=== PATIENT | female | born 1955 | race Caucasian/White ===

== ENCOUNTER 2022-11-23 06:56 | Observation (INO) ==
--- NOTE | 2022-10-22 11:17 | PAT Medication Instructions ---
Medication Instructions Date of Service October 22, 2022 Home Medications albuterol sulfate 2.5 mg/3 mL (0.083 %) solution for nebulization 2.5 mg inhalation QID PRN Shortness Of Breath albuterol sulfate 90 mcg/actuation aerosol inhaler (Proventil HFA) 2 puff inha lation QID PRN Shortness Of Breath amlodipine 10 mg tablet 10 mg PO HS aripiprazole 10 mg tablet 10 mg PO HS buspirone 15 mg tablet 15 mg PO TID dapagliflozin 5 mg tablet (Farxiga) 5 mg PO QAM duloxetine 60 mg capsule,delayed release 60 mg PO QAM fluticasone 500 mcg-salmeterol 50 mcg/dose blistr powdr for inhalation (Advair Diskus) 1 inh inhalation BID gabapentin 400 mg capsule 400 mg PO TID levothyroxine 112 mcg tablet 112 mcg PO UD levothyroxine 125 mcg tablet 125 mcg PO UD losartan 50 mg tablet 50 mg PO BID metformin 1,000 mg tablet 1,000 mg PO BID metoprolol succinate 50 mg tablet,extended release 24 hr 50 mg PO BID pantoprazole 40 mg tablet,delayed release 40 mg PO BID semaglutide 1 mg/dose (4 mg/3 mL) subcutaneous pen injector (Ozempic) 1 mg subcut Q7D tiotropium bromide 18 mcg capsule with inhalation device (Spiriva with HandiHaler) 1 cap inhalation HS Continue as directed levothyroxine 112 mcg tablet 112 mcg PO UD levothyroxine 125 mcg tablet 125 mcg PO UD semaglutide 1 mg/dose (4 mg/3 mL) subcutaneous pen injector (Ozempic) 1 mg subcut Q7D ASK your prescriber and surgeon aripiprazole 10 mg tablet 10 mg PO HS STOP taking 3 days before surgery dapagliflozin 5 mg tablet (Farxiga) 5 mg PO QAM DO NOT take the morning of surgery losartan 50 mg tablet 50 mg PO BID metformin 1,000 mg tablet 1,000 mg PO BID Take morning of surgery With a small sip of water, OTHERWISE NOTHING TO EAT OR DRINK AFTER MIDNIGHT: albuterol sulfate 2.5 mg/3 mL (0.083 %) solution for nebulization 2.5 mg inhalation QID PRN Shortness Of Breath (if needed) albuterol sulfate 90 mcg/actuation aerosol inhaler (Proventil HFA) 2 puff inhalation QID PRN Shortness Of Breath (use if needed; please bring with you to hospital day of surgery if possible) buspirone 15 mg tablet 15 mg PO TID duloxetine 60 mg capsule,delayed release 60 mg PO QAM fluticasone 500 mcg-salmeterol 50 mcg/dose blistr powdr for inhalation (Advair Diskus) 1 inh inhalation BID gabapentin 400 mg capsule 400 mg PO TID metoprolol succinate 50 mg tablet,extended release 24 hr 50 mg PO BID pantoprazole 40 mg tablet,delayed release 40 mg PO BID Take evening before surgery albuterol sulfate 2.5 mg/3 mL (0.083 %) solution for nebulization 2.5 mg inhalation QID PRN Shortness Of Breath (if needed) albuterol sulfate 90 mcg/actuation aerosol inhaler (Proventil HFA) 2 puff inhalation QID PRN Shortness Of Breath (if needed) amlodipine 10 mg tablet 10 mg PO HS buspirone 15 mg tablet 15 mg PO TID fluticasone 500 mcg-salmeterol 50 mcg/dose blistr powdr for inhalation (Advair Diskus) 1 inh inhalation BID gabapentin 400 mg capsule 400 mg PO TID losartan 50 mg tablet 50 mg PO BID metformin 1,000 mg tablet 1,000 mg PO BID metoprolol succinate 50 mg tablet,extended release 24 hr 50 mg PO BID pantoprazole 40 mg tablet,delayed release 40 mg PO BID tiotropium bromide 18 mcg capsule with inhalation device (Spiriva with HandiHaler) 1 cap inhalation HS Other Notes If you have any questions please call us at [phone] or [phone] or [phone] or [phone]
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
[~2022-11-23 06:56] MED LIST: ACETAMINOPHEN 500 MG TAB PO SCH; BUPIVACAINE 0.5 % 5 MG/1 ML PF 10ML VIAL ONE; FAMOTIDINE 20 MG TAB PO SCH; GABAPENTIN 300 MG CAP PO SCH; LR 15ML/HR IV SCH; LR 60ML/HR IV SCH; ORTHO JOINT MIX INFIL SCH; TRANEXAMIC ACID 1,000 MG **IV Intra-op IV SCH; TRANEXAMIC ACID 1,000 MG **IV Pre-op IV SCH; VANCOMYCIN HCL 500 MG in NSS 100mL IV SCH; dexAMETHasone 4 MG TAB PO SCH
--- NOTE | 2022-11-23 08:01 | History & Physical Bridge Note ---
Date of Service November 23, 2022 History & Physical Bridge Note I have examined the patient, reviewed the History & Physical and in the interval since the performance of the History & Physical I have noted the following changes of clinical significance: no changes noted
[2022-11-23] MEDS ORDERED: fentaNYL citrate PF 100 MCG/2 ML VIAL IV PRN (08:22)
[2022-11-23] MEDS ORDERED: HYDROmorphone INJ 2 MG/ML SYR/VIAL IV PRN (08:22)
[2022-11-23] MEDS ORDERED: ePHEDrine sulfate 50 MG/ML AMP IV PRN (08:22)
[2022-11-23] MEDS ORDERED: ATROPINE SULFATE 0.1 MG/ML 10ML SYR IV PRN (08:22)
[2022-11-23] MEDS ORDERED: PROMETHAZINE HCL 6.25 MG in SODIUM CHLORIDE 0.9% 50 ML IV PRN (08:22)
[2022-11-23] MEDS ORDERED: ceFAZolin 2,000 MG/15 ML IV PUSH IV ONE (08:22)
[2022-11-23] MEDS ORDERED: fentaNYL citrate PF 100 MCG/2 ML VIAL ONE ×2 (08:31→10:00)
[2022-11-23] MEDS ORDERED: MIDAZOLAM HCL 1 MG/ML 2ML VIAL ONE (08:31)
[2022-11-23] MEDS ORDERED: ORTHO JOINT ANESTHETIC ONE (08:34)
[2022-11-23] MEDS ORDERED: VANCOMYCIN HCL 1 GM/270 ML BAG IV ONE (09:15)
[2022-11-23] MEDS ORDERED: VANCOMYCIN CONSULT ACTIVE PRN ×2 (09:16→13:02)
[2022-11-23] MEDS ORDERED: diphenhydrAMINE 50 MG/ML VIAL ONE ×2 (09:40→12:12)
[2022-11-23] MEDS ORDERED: DEXAMETHASONE SOD INJ 4 MG/ML VIAL ONE (09:40)
[2022-11-23] MEDS ORDERED: PROPOFOL IV EMULSION 10 MG/ML 20 ML VIAL IV ONE ×2 (09:40→10:02)
[2022-11-23] MEDS ORDERED: ONDANSETRON INJ 2 MG/ML 2 ML VIAL ONE (09:40)
[2022-11-23] MEDS ORDERED: GLYCOPYRROLATE 0.2 MG/ML VIAL ONE (10:13)
--- NOTE | 2022-11-23 10:45 | Operative Report ---
PG Post Operative Report Pre & Post Diagnosis Operation Date: 11/23/22 09:00 Pre-Op Diagnosis: Right shoulder cuff tear arthropathy with tendinopathy long head the biceps tendon Post-Op Diagnosis: Right shoulder cuff tear arthropathy with tendinopathy long head of the biceps tendon I identified the patient and participated in the time-out.: Yes Procedure Operation Date: 11/23/22 09:00 Actual Procedures p Right Total Shoulder Arthroplasty Reverse(Right) with open biceps tenodesis as a distinct and separate procedure (modifier 59)- Lukas Mathis DO Surgeon Lukas Mathis DO Side Seam Tender Lukas Ennis PA-C Estimated Blood Loss 150 Findings Consistent with Post-Op Diagnosis Specimens Right humeral head Description of Procedure A CPT code modifier 59: The long head of the biceps tendon was enlarged and inflamed consistent with tendinopathy. A tenodesis was opted. This was a separate and distinct portion of the procedure. For these reasons, a CPT code modifier 59 will be added to this case. Implants used: I used a [employer] Comprehensive reverse total shoulder arthroplasty system with a size 11 press fit micro humeral stem, a +6 offset humeral tray and a standard humeral bearing, a 25 mm small augment baseplate with a 6.5 mm central screw and superior and inferior locking screws, and a size 36 mm eccentric glenosphere. Judit arrived at [facility] for the above procedure. She was seen in the preoperative holding area and the operative extremity was identified and signed. She was given a preoperative antibiotic, TXA, and an interscalene nerve block. She was taken back to the operating room, laid on table in supine position, and put under general anesthesia. She was then put into the beachchair position. The shoulder was then prepped and draped in sterile fashion. A timeout was done and the patient and the operative extremity was properly identified. A deltopectoral approach was used. Dissection was taken down through the fascia and the deltoid was retracted laterally and the conjoined tendon was retracted medially. The anterior shoulder was exposed. The biceps groove was opened up and the biceps tendon was examined extensively. The biceps tendon demonstrated enlargement and inflammatory changes consistent with longstanding inflammation in the context of osteoarthritis and cuff arthropathy. The long head of the biceps tendon was then tenodesed to the upper border of the pectoralis major. This was a separate and distinct portion of the procedure. The subscapularis was then directly released off the lesser tuberosity with a peel technique. The inferior capsule was released and the humeral head was dislocated. A canal finding reamer was sent down the center of the humeral canal. Sequential reaming up to a size 11 reamer was done. Off that reamer, a proximal humeral resection guide was placed. The proximal humerus was resected at 135 of inclination and 25 of retroversion. Osteophytes were then removed and the glenoid was exposed. Time was spent doing a complete capsular and labral release. The glenoid guide was then placed in the inferior aspect of the glenoid. A 3.2 mm Steinmann pin was then placed into the glenoid vault at 10 of inclination. The glenoid baseplate was then reamed. The final size 25 mm small augment baseplate was then impacted in the place. A 6.5 mm central screw was then placed followed by superior and inferior locking screws. A 36 mm eccentric glenosphere was then impacted into place. Surrounding soft tissues were then injected with 100 cc an orthopedic pain control cocktail. The proximal humerus was then exposed. Sequential broaching of the humerus up to a size 11 broach was done. Off that broach a +6 offset humeral tray was trialed. The shoulder was then reduced, brought through a full range of motion, and felt to be stable. The shoulder was then dislocated and the broach was removed. The final size 11 micro press-fit humeral stem was then impacted into place. A standard humeral bearing was then snapped onto a +6 offset humeral tray. The humeral tray was then impacted onto the humeral stem. The shoulder was once again reduced, brought through a full range of motion, and felt to be stable. The subscapularis was then tenodesed back to the lesser tuberosity with transosseous FiberWire sutures and side to side sutures with the arm in 45 of external rotation. A dilute betadyne lavage was then done for 3 minutes. The joint was then irrigated with normal saline solution. Hemostasis was obtained. The interval was closed with 2-0 Vicryl suture. The skin was then closed with 2-0 Vicryl and agata. A Silverlon dressing was placed and the arm was rested in a regular arm sling. She was then extubated and transferred to a hospital bed. She taken to the postanesthesia care unit in stable condition. She tolerated the procedure well. Lukas Ennis PA-C, was present for the entire procedure. He was critical for patient positioning, prepping, draping, retraction exposure, wound closure and application of sterile dressing. I attest to the content of the Intraoperative Record and any orders documented therein. Any exceptions are noted below.
[2022-11-23] MEDS ORDERED: ALBUT/IPRATROP 3MG/0.5MG NEB 3 ML VIAL NEB STA ×2 (11:48→11:50)
[2022-11-23] MEDS ORDERED: diphenhydrAMINE 50 MG/ML VIAL IV STA (12:12)
--- NOTE | 2022-11-23 12:16 | Communication Note ---
Date of Service: November 23, 2022 pt c/o difficulty breathing post op. "my lower lung is tight". Pt has a functional interscalene block of her right arm. CTA b/l no w/r/r. upper airway has laminar flow. no sounds of obstruction. pt is tachypnic and on four liters of o2 NC. pt is worried that her covid is causing breathing problems. 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 will give benadryl because of her history of analyphylaxes. will check cxr
--- NOTE | 2022-11-23 12:25 | XRay Report ---
XR shoulder RT min 2V routine CLINICAL HISTORY: Post shoulder surgery COMPARISON STUDY: 04/12/2022. FINDINGS: Status post reverse right total shoulder arthroplasty. The hardware appears intact. No frac ture or dislocation within the right shoulder. Skin agata are in place. IMPRESSION: Status post reverse right total shoulder arthroplasty. No evidence for hardware complica tion. ACT 112: Negative or not required by law. Electronically signed by: Enrike Chiang M.D. 11/23/2022 12:23 PM
--- NOTE | 2022-11-23 12:37 | XRay Report ---
XR chest 1V portable CLINICAL HISTORY: difficulty breathing, post interscalene nerve block TECHNIQUE: Single frontal radiograph of the chest was obtained. Comparison: None available at the time of this dictation. FINDINGS: No lines and tubes are seen. The cardiomediastinal silhouette is normal. Elevation of the right hemid iaphragm is seen. No evidence of pleural effusion or pneumothorax. IMPRESSION: No acute chest disease. ACT 112: Negative or not required by law. Electronically signed by: Brian South M.D. 11/23/2022 12:36 PM
[2022-11-23] MEDS ORDERED: ALBUTEROL HFA 8 GM INHALER INH PRN (13:02)
[2022-11-23] MEDS ORDERED: bisacodyL 10 MG SUPP PR PRN (13:02)
[2022-11-23] MEDS ORDERED: ONDANSETRON INJ 2 MG/ML 2 ML VIAL IV PRN (13:02)
[2022-11-23] MEDS ORDERED: PHARMACY GLYCEMIC MGMT CONSULT PRN (13:02)
[2022-11-23] MEDS ORDERED: SODIUM CHLORIDE 0.9% 1000ML 1,000 ML IV SCH (13:02)
[2022-11-23] MEDS ORDERED: NON-FORMULARY MEDICATION (Semaglutide [Ozempic] 1 mg/dose (4 mg/3 mL) Pen Injector) SQ SCH (13:02)
[2022-11-23] MEDS ORDERED: MAGNESIUM HYDROXIDE SUSP 30 ML UDC PO PRN (13:02)
[2022-11-23] MEDS ORDERED: NALOXONE HCL 0.4 MG/1 ML VIAL/CARP IV PRN (13:02)
[2022-11-23] MEDS ORDERED: METOCLOPRAMIDE HCL INJ 5 MG/ML 2 ML VIAL IV PRN (13:02)
--- NOTE | 2022-11-23 13:21 | Anesthesiology Progress Note ---
Date of Service November 23, 2022 Anesthesia Post Procedure Vital Signs Vital Signs: Temp Pulse Pulse Resp BP Pulse Ox O2 Del Method 11/23/22 13:14 36.8 C 101 H 18 118/78 91 Nasal Cannula 11/23/22 12:44 36.6 C 100 H 18 100/65 90 Nasal Cannula 11/23/22 11:40 101 H 18 109/64 95 Oxymask 11/23/22 11:30 94 H 19 96/64 L 90 Oxymask 11/23/22 11:50 37.0 C 98 H 16 106/82 94 Oxymask 11/23/22 11:20 101 H 21 124/82 92 Oxymask 11/23/22 11:11 36.0 C L 97 H 20 82/57 L 92 Oxymask 11/23/22 07:42 Room Air 11/23/22 07:34 36.6 C 81 18 127/80 94 Room Air O2 Flow Rate 11/23/22 13:14 6 11/23/22 12:44 5 11/23/22 11:40 9 11/23/22 11:30 9 11/23/22 11:50 9 11/23/22 11:20 9 11/23/22 11:11 9 11/23/22 07:42 11/23/22 07:34 Pain Intensity Right Ankle: Pain Intensity: 5 Right Shoulder: Pain Intensity: 0 Transfer of Care Handoff Completed per policy Notes Mental Status: alert / awake / arousable and participated in evaluation Patient Amnestic to Procedure: Yes Nausea / Vomiting: adequately controlled Pain: adequately controlled Airway Patency, RR, SpO2: stable & adequate BP & HR: stable & adequate Hydration State: stable & adequate Anesthetic Complications: no major complications apparent and Pt Satisfied with anesthetic care
[2022-11-23] MEDS: [UNRECOGNIZED DRUG - REMARK] SCH ×3 (13:45→13:47)
[2022-11-23] MEDS: ALBUTEROL 0.083% NEBU SOLN 3 ML VIAL INH PRN ×2 (14:03→20:16)
[2022-11-23] MEDS: KETOROLAC TROMETHAMINE 15 MG/ML VIAL IV SCH ×2 (14:10→18:32)
[2022-11-23] MEDS: busPIRone 15 MG TAB PO SCH ×2 (14:10→20:44)
[2022-11-23] MEDS: ACETAMINOPHEN 500 MG TAB PO SCH ×2 (14:10→21:28)
[2022-11-23] MEDS: GABAPENTIN 400 MG CAP PO SCH ×2 (14:10→20:45)
[2022-11-23] MEDS ORDERED: NovoLIN-N (NPH) PER UNIT CHARGE SQ ONE (14:15)
[2022-11-23] MEDS ORDERED: CARBOHYDRATES FOR HYPOGLYCEMIA PO PRN (14:15)
[2022-11-23] MEDS ORDERED: GLUCOSE 10 TAB/TUBE PO PRN (14:15)
[2022-11-23] MEDS ORDERED: GLUCAGON FOR INJ 1 MG VIAL IM PRN (14:15)
[2022-11-23] MEDS ORDERED: DEXTROSE 50% 50 ML SYRINGE IV PRN (14:15)
[2022-11-23] MEDS ORDERED: GLUCOSE 40% GEL 15 GM TUBE PO PRN (14:15)
--- NOTE | 2022-11-23 14:20 | Pharmacy Report ---
Pharmacy Glycemic Short Note 2 - Date of Service November 23, 2022 - Glycemic Short BSG Results (Last 24 hours): 11/23/22 11/23/22 11/23/22 07:37 11:09 13:06 POC Glucose 139 H 153 H 212 H OUTPATIENT ANTIDIABETIC REGIMEN: * metformin 1 gm PO BID * Farxiga 5 mg PO daily * Ozempic 1 mg SQ weekly on Wednesdays * HbA1C = 7.2% (10/29/22) ASSESSMENT: * Ms Palma is a 67 y/o F with a PMH of T2DM who presents for R shoulder surgery. * Patient's fasting/preop BSG was 139 mg/dL. Postop BSG was 212 mg/dL. Confirmed with nursing that patient did NOT eat prior to this. * During surgery today, patient received dexamethasone 8 mg PO preop + dexamethasone 4 mg IV intraoperatively. * For steroids, will give NPH 40 units SQ x 1 (0.4 units/kg). Patient's fasting BSG was elevated at 139 mg/dL + patient is on three medications with an HbA1C of 7.2% so will give Lantus 20 units SQ x 1 (0.2 units/kg). * Novolog weight-based stress of 3 for now due to steroids. Overnight checks to ensure 24 hours coverage. PLAN FOR INPATIENT GLYCEMIC CONTROL: * Hold outpatient oral diabetes medications * Basal insulin * Lantus 20 units SQ x 1 re-evaluate tomorrow * NPH 40 units SQ x 1 * Bolus insulin * NovoLog per scale ACHS or Q6hrs while NPO * Goal Range: Low 110 mg/dL - High 140 mg/dL * Correction Factor: 15 mg/dL/unit * Nutritional / Prandial insulin per carb ratio of 1 unit per 5 grams CHO consumed
[2022-11-23] MEDS ORDERED: LANTUS PER UNIT CHARGE SC ONE (14:30)
[2022-11-23] MEDS: INSULIN ASPART PER UNIT CHARGE SC SCH ×3 (14:38→21:28)
[2022-11-23] MEDS: oxyCODONE HCL IR 5 MG TAB (IMMEDIATE RELEASE) PO PRN (19:54)
[2022-11-23] MEDS: METOPROLOL SUCC 50MG EXT REL TAB PO SCH (20:44)
[2022-11-23] MEDS: amLODIPine BESYLATE 5 MG TAB PO SCH (20:44)
[2022-11-23] MEDS: SENNA 8.6 MG TAB PO SCH (20:44)
[2022-11-23] MEDS: DOCUSATE SODIUM 100 MG CAP PO SCH (20:44)
[2022-11-23] MEDS: LOSARTAN POTASSIUM 50 MG TAB PO SCH (20:44)
[2022-11-23] MEDS: ARIPiprazole 10 MG TAB PO SCH (20:44)
[2022-11-23] MEDS: PANTOprazole 40 MG TAB PO SCH (20:44)
[2022-11-23] MEDS ORDERED: VANCOMYCIN HCL 1,500 MG in SODIUM CHLORIDE 0.9% 500 ML IV SCH (21:15)
[2022-11-24] MEDS: INSULIN ASPART PER UNIT CHARGE SC SCH ×6 (00:39→20:25)
[2022-11-24] MEDS: KETOROLAC TROMETHAMINE 15 MG/ML VIAL IV SCH ×4 (00:39→20:06)
[2022-11-24] MEDS: oxyCODONE HCL IR 5 MG TAB (IMMEDIATE RELEASE) PO PRN ×2 (04:29→10:47)
[2022-11-24] MEDS: ALBUTEROL 0.083% NEBU SOLN 3 ML VIAL INH PRN ×2 (04:39→11:56)
[2022-11-24] MEDS: ACETAMINOPHEN 500 MG TAB PO SCH ×3 (05:39→21:28)
[2022-11-24] MEDS ORDERED: VANCOMYCIN HCL 500 MG in SODIUM CHLORIDE 0.9% 250 ML IV SCH (06:00)
[2022-11-24] MEDS ORDERED: LEVOTHYROXINE SODIUM 112 MCG TABLET PO SCH (06:30)
--- NOTE | 2022-11-24 07:22 | Orthopedic Progress Note ---
Date of Service November 24, 2022 Assessment & Plan (1) Status post reverse total replacement of right shoulder: Overall her shoulder is doing fine but she is dealing with some postsurgical hypoxia. She does have a history of hypoxia in the recent past. She is able to take a deep breath so I do not feel that the phrenic nerve was affected with the nerve block. We will see how she does this morning with physical therapy. I did talk to the nurses. Hopefully we can wean her off the oxygen. If her oxygen saturations are 90% or greater then she can be discharged home today. If they are not the nursing staff will alert me and we may do a two-step to determine home oxygen and outpatient follow-up. Valarie Gill was seen and examined at bedside this morning. Overall she is doing okay. She is not having too much pain in the left shoulder. Her oxygen saturations have been low. She is on 7 L of oxygen. When they take her off she falls into the low 80s. She was recently on home oxygen for COVID and was just removed from that about 3 months ago. Her oxygen saturations are normally around 90%. She is able to take a deep breath.. Review of Systems All systems reviewed & are unremarkable except as noted in HPI & below. Physical Exam On physical examination of the left shoulder, the dressing is clean and dry. She has active motion of her hand and wrist.. Results & Data Results & Data Laboratory Results . Diagnostic Findings Postoperative x-rays of the left shoulder show the prosthesis to be in anatomic alignment without any evidence of fracture complication, or loosening.. PG Care Time/CCT Total # of Minutes Spent Total Time Spent with Patient: Total time spent is greater than 50% in coordination of care (as documented) at patient's floor/unit and/or counseling patient: Coding Level of Care Code 06946 Post Operative Follow-Up Diagnoses Status post reverse total replacement of right shoulder Z96.611
[2022-11-24] MEDS: GABAPENTIN 400 MG CAP PO SCH ×3 (07:25→20:17)
[2022-11-24] MEDS: PANTOprazole 40 MG TAB PO SCH ×2 (07:25→20:17)
[2022-11-24] MEDS: FLUTICASONE/VILANTEROL 200/25MCG 14 PUFFS/INHALER INH SCH (07:26)
[2022-11-24] MEDS: DOCUSATE SODIUM 100 MG CAP PO SCH ×2 (07:26→20:17)
[2022-11-24] MEDS: LOSARTAN POTASSIUM 50 MG TAB PO SCH ×2 (07:27→20:17)
[2022-11-24] MEDS: busPIRone 15 MG TAB PO SCH ×3 (07:27→20:17)
[2022-11-24] MEDS: DULoxetine HCL 60 MG CAP PO SCH (07:27)
[2022-11-24] MEDS: MULTIVITAMIN TAB PO SCH (07:27)
--- NOTE | 2022-11-24 08:56 | Pharmacy Report ---
Pharmacy Glycemic Short Note 2 - Date of Service November 24, 2022 - Glycemic Short BSG Results (Last 24 hours): 11/23/22 11/23/22 11/23/22 11:09 13:06 16:51 POC Glucose 153 H 212 H 249 H 11/23/22 11/24/22 11/24/22 20:41 00:12 04:13 POC Glucose 229 H 191 H 156 H 11/24/22 06:38 POC Glucose 183 H OUTPATIENT ANTIDIABETIC REGIMEN: * Metformin 1 gm PO BID * Farxiga 5 mg PO daily * Ozempic 1 mg SC weekly on Wednesdays * HbA1c: 7.2% (10/29/22) ASSESSMENT: 11/24: * Patient received 104 units of insulin yesterday, 60 units basal + 44 units bolus. BSGs were: [phone] mg/dL. * Fasting BSG this AM was 183 mg/dL, above goal. Will increase basal by ~20% today. * Still seeing some effects of steroid-induced hyperglycemia throughout the night. Likely will wear off in the next 24 hours but will tighten bolus parameters slightly to maintain a BSG < 180 mg/dL to help prevent postoperative infection. * Possible discharge today per ortho. 11/23: * Ms Palma is a 67 y/o F with a PMH of T2DM who presents for R shoulder surgery. * Patient's fasting/preop BSG was 139 mg/dL. Postop BSG was 212 mg/dL. Confirmed with nursing that patient did NOT eat prior to this. * During surgery today, patient received dexamethasone 8 mg PO preop + dexamethasone 4 mg IV intraoperatively. * For steroids, will give NPH 40 units SQ x 1 (0.4 units/kg). Patient's fasting BSG was elevated at 139 mg/dL + patient is on three medications with an HbA1C of 7.2% so will give Lantus 20 units SQ x 1 (0.2 units/kg). * Novolog weight-based stress of 3 for now due to steroids. Overnight checks to ensure 24 hours coverage. PLAN FOR INPATIENT GLYCEMIC CONTROL: * Hold outpatient oral diabetes medications * Basal insulin * Lantus 25 units SC x 1 this AM * Reassess basal in AM * Bolus insulin * NovoLog per scale ACHS or Q6hrs while NPO * Goal Range: Low 110 mg/dL - High 140 mg/dL * Correction Factor: 12 mg/dL/unit * Nutritional / Prandial insulin per carb ratio of 1 unit per 4 grams CHO consumed
[2022-11-24] MEDS ORDERED: LANTUS PER UNIT CHARGE SC ONE (09:00)
[2022-11-24] MEDS: METOPROLOL SUCC 50MG EXT REL TAB PO SCH ×2 (09:47→20:17)
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
[2022-11-24 14:56] LABS: Basophils # (auto) 0.02 K/uL (0-0.2); Basophils % (auto) 0.2 %; Eosinophils # (auto) 0.01 K/uL (0-0.50); Eosinophils % (auto) 0.1 %; Hematocrit (blood only) 34.3 % (37.0-47.0); Hemoglobin 10.9 g/dl (12.0-16.0); Immature Granulocytes # (auto) 0.07 K/uL (0.01-0.20); Immature Granulocytes % (auto) 0.6 %; Lymphocytes # (auto) 1.25 K/uL (1.2-3.4); Lymphocytes % (auto) 10.8 %; Mean Corpuscular Hemoglobin 25.7 pg (25.0-34.0); Mean Corpuscular Hgb Conc 31.8 g/dL (32.0-36.0); Mean Corpuscular Volume 80.9 fL (80.0-100.0); Mean Platelet Volume 9.9 fL (9.4-12.4); Monocytes # (auto) 0.82 K/uL (0.11-0.59); Monocytes % (auto) 7.1 %; Neutrophils # (auto) 9.43 K/uL (1.40-6.50); Neutrophils % (auto) 81.2 %; Platelet Count 330 K/uL (130-400); RDW Coefficient of Variation 16.2 % (11.5-14.5); RDW Standard Deviation 47.1 fL (36.4-46.3); Red Blood Count 4.24 M/uL (4.20-5.40)
--- NOTE | 2022-11-24 15:07 | XRay Report ---
XR chest 1V portable HISTORY: post-op hypoxia, ?R hemidiaphragm elevation COMPARISON: Chest 11/23/2022. FINDINGS: Status post recent right total shoulder arthroplasty. No pneumothorax. There are low lung v olumes. There is elevation the right hemidiaphragm with bibasilar linear densities. The heart is norm al in size. There is mild central pulmonary vascular congestion without overt edema. IMPRESSION: 1. Elevated right hemidiaphragm, unchanged. 2. Bibasilar linear densities are nonspecific but favor subsegmental atelectasis. A pneumonia could a lso have a similar appearance. 3. Mild central pulmonary vascular congestion without overt edema. ACT 112: Negative or not required by law. Electronically signed by: Enrike Chiang M.D. 11/24/2022 3:06 PM
[2022-11-24 15:13] LABS: BUN Creatinine Ratio 17.4 (10-20); Calcium 9.1 mg/dl (8.6-10.3); Creatinine Clr Calc Pharmacy 42.7 ml/min; Est GFR (African American) 42.3 ml/min; Est GFR (Non-African American) 36.5 ml/min; Magnesium 2.1 mg/dl (1.7-2.4); Potassium 4.5 mmol/L (3.5-5.1)
[2022-11-24] MEDS ORDERED: methylPREDNISolone 60 MG in SYRINGE 0 ML IV ONE (15:30)
[2022-11-24] MEDS: LEVALBUTEROL 1.25 MG/3 ML NEB NEB PRN ×2 (17:41→22:21)
--- NOTE | 2022-11-24 18:04 | Electrocardiogram Report ---
Test Reason : Blood Pressure : / mmHG Vent. Rate : 080 BPM Atrial Rate : 080 BPM P-R Int : 222 ms QRS Dur : 092 ms QT Int : 372 ms P-R-T Axes : 043 027 045 degrees QTc Int : 429 ms Sinus rhythm with 1st degree A-V block Otherwise normal ECG When compared with ECG of 29-OCT-2022 14:50, No significant change was found Confirmed by Morales Quick ([id number]) on 11/24/2022 6:03:52 PM Referred By: Lukas Mathis Confirmed By:Todd Quick
[2022-11-24] MEDS: SENNA 8.6 MG TAB PO SCH (20:16)
[2022-11-24] MEDS: amLODIPine BESYLATE 5 MG TAB PO SCH (20:17)
[2022-11-24] MEDS: ARIPiprazole 10 MG TAB PO SCH (20:17)
[2022-11-24] MEDS ORDERED: UMECLIDINIUM BROMIDE 62.5MCG/BLISTER 7 PUFFS/INHALER INH SCH (21:00)
[2022-11-25] MEDS: INSULIN ASPART PER UNIT CHARGE SC SCH ×4 (00:23→12:30)
[2022-11-25] MEDS: KETOROLAC TROMETHAMINE 15 MG/ML VIAL IV SCH ×2 (02:13→07:55)
[2022-11-25] MEDS: oxyCODONE HCL IR 5 MG TAB (IMMEDIATE RELEASE) PO PRN ×3 (05:57→15:52)
[2022-11-25] MEDS: ACETAMINOPHEN 500 MG TAB PO SCH ×2 (05:57→14:39)
--- NOTE | 2022-11-25 06:10 | Orthopedic Progress Note ---
Date of Service November 25, 2022 Assessment & Plan (1) Status post reverse total replacement of right shoulder: With regards to her shoulder she is doing fairly well. She is not having too much pain in her shoulder. She was seen yesterday by the hospitalist. She was diagnosed with possible asthma exasperation. She was given steroids. We will see how she does today. It seems that if she can maintain her oxygen saturations above 89% on less than 4 L of oxygen then she can return home on oxygen. However, if her saturations do not improve then we will likely order a CT scan of the chest. She is orthopedically stable for discharge today if okay with hospitalist. We will see how her lungs do. Valarie Spain was seen and examined at bedside this morning. She has CPAP on overnight. She is not having too much pain in the right shoulder. Her lungs seem to be improving some on the steroids. She has no new complaints.. Review of Systems All systems reviewed & are unremarkable except as noted in HPI & below. Physical Exam On physical examination of the right shoulder, the dressing is clean and dry. She has active motion of her hand and wrist.. Results & Data Results & Data Laboratory Results . Diagnostic Findings . PG Care Time/CCT Total # of Minutes Spent Total Time Spent with Patient: Total time spent is greater than 50% in coordination of care (as documented) at patient's floor/unit and/or counseling patient: Coding Level of Care Code 69768 Post Operative Follow-Up Diagnoses Status post reverse total replacement of right shoulder Z96.611
[2022-11-25] MEDS ORDERED: LEVOTHYROXINE SODIUM 125 MCG TABLET PO SCH (06:30)
[2022-11-25 06:50] LABS: Basophils # (auto) 0.01 K/uL (0-0.2); Basophils % (auto) 0.1 %; Hematocrit (blood only) 32.5 % (37.0-47.0); Hemoglobin 10.3 g/dl (12.0-16.0); Immature Granulocytes # (auto) 0.06 K/uL (0.01-0.20); Immature Granulocytes % (auto) 0.7 %; Lymphocytes # (auto) 0.67 K/uL (1.2-3.4); Lymphocytes % (auto) 7.7 %; Mean Corpuscular Hemoglobin 25.8 pg (25.0-34.0); Mean Corpuscular Hgb Conc 31.7 g/dL (32.0-36.0); Mean Corpuscular Volume 81.3 fL (80.0-100.0); Mean Platelet Volume 9.7 fL (9.4-12.4); Monocytes # (auto) 0.42 K/uL (0.11-0.59); Monocytes % (auto) 4.8 %; Neutrophils # (auto) 7.58 K/uL (1.40-6.50); Neutrophils % (auto) 86.7 %; Platelet Count 291 K/uL (130-400); RDW Coefficient of Variation 15.9 % (11.5-14.5); RDW Standard Deviation 47.1 fL (36.4-46.3); White Blood Count 8.74 K/ul (4.8-10.8)
[2022-11-25] MEDS: LEVALBUTEROL 1.25 MG/3 ML NEB NEB PRN (06:56)
[2022-11-25 07:02] LABS: BUN Creatinine Ratio 20.7 (10-20); Calcium 8.7 mg/dl (8.6-10.3); Creatinine Clr Calc Pharmacy 43.8 ml/min; Est GFR (African American) 43.7 ml/min; Est GFR (Non-African American) 37.7 ml/min; Magnesium 2.1 mg/dl (1.7-2.4); Potassium 4.7 mmol/L (3.5-5.1)
[2022-11-25] MEDS: DOCUSATE SODIUM 100 MG CAP PO SCH (08:33)
[2022-11-25] MEDS: PANTOprazole 40 MG TAB PO SCH (08:34)
[2022-11-25] MEDS: DULoxetine HCL 60 MG CAP PO SCH (08:34)
[2022-11-25] MEDS: MULTIVITAMIN TAB PO SCH (08:34)
[2022-11-25] MEDS: busPIRone 15 MG TAB PO SCH ×2 (08:34→14:39)
[2022-11-25] MEDS: LOSARTAN POTASSIUM 50 MG TAB PO SCH (08:34)
[2022-11-25] MEDS: GABAPENTIN 400 MG CAP PO SCH ×2 (08:35→14:39)
[2022-11-25] MEDS: FLUTICASONE/VILANTEROL 200/25MCG 14 PUFFS/INHALER INH SCH (08:35)
[2022-11-25] MEDS: METOPROLOL SUCC 50MG EXT REL TAB PO SCH (08:36)
[2022-11-25] MEDS ORDERED: predniSONE 20 MG TAB PO SCH (09:00)
[2022-11-25] MEDS ORDERED: LANTUS PER UNIT CHARGE SC ONE (09:00)
[2022-11-25] MEDS ORDERED: NovoLIN-N (NPH) PER UNIT CHARGE SQ ONE (09:00)
[2022-11-25] MEDS ORDERED: ASPIRIN 325 MG ECTAB PO SCH (09:00)
--- NOTE | 2022-11-25 12:18 | Hospitalist Progress Note ---
Date of Service November 25, 2022 Assessment & Plan (1) Acute respiratory failure with hypoxia: Plan: Acute respiratory failure with hypoxia, postoperative. Suspect acute on chronic asthma exacerbation +/- hemidiaphragm elevate Greatly improved on reassessment 11/25. Trace end expiratory wheezing Incentive spirometry volumes are also greatly improved, patient previously only getting 500 and is now in the sinuses No shortness of breath, no fever/chills/sweats With clinical improvement feel she is appropriate for discharge. DDx includes delayed interscalene block with diaphragmatic paresis versus mild asthma exacerbation Will treat asthma exacerbation with total of 5-day steroid burst. May follow- up with PCP, appropriate for discharge at this time. Patient comfortable with the plan and return precautions given -Based on two-step and oximetry recommend continuing 2-4 L of oxygen as needed to maintain SPO2 greater than 90% and down titration as able. Oxygen bleed into CPAP at night to which patient is comfortable with and has done before. Acute on chronic asthma exacerbation, history of eosinophil Improved, steroid course ordered S/p right shoulder arthroplasty 11/23/2022 2/2 oa Pain control, activity per primary team. Patient is continued on Toradol every 6 hours w/ 3 doses remaining, oxycodone scaled, tylenol Low risk for DVT following shoulder surgery, routine DVT prophylaxis with risks outweighing benefit May resume home full dose aspirin for secondary stroke prevention which patient is on [employer] Patient denies any central or left-sided chest pain. She does note that she has some shoulder blade pain which is more in her shoulder and not in the chest. Low suspicion for ACS, but will obtain EKG for complete DM2, chronic, requiring additional adjustments in the setting of steroid Home antiglycemic's held; can resume at discharge On basal bolus SSI therapy while inpatient Pharmacy glycemic consult in place, appreciate assistance in management Pharmacy notified of steroid initiation for glycemic adjustments Goal BSG 390894, glucose checks AC/at bedtime, DM diet. Last A1c 7.2 SURI, chronic Continue CPAP nightly 9 mm H2O with oxygen bleed as needed as noted Goal SPO2 greater than 89 Hypothyroidism, chronic well controlled Continue Synthroid Hypertension, chronic Continue amlodipine, metoprolol, and losartan Adequate blood pressure control at time of assessment GERD, Barretts, chronic Continue Protonix twice daily especially w/ hx of Baretts & receiving steroids, is on full dose aspirin, and is also received Toradol 15 mg every 6 hours No epigastric pain at bedside assessed Anxiety/depression, chronic well controlled Mood well controlled, patient alert and oriented and euthymic postoperatively at bedside Continue BuSpar, duloxetine, aripiprazole DVT prophylaxis: SCDs CODE STATUS: Full code Diet: DM 2 (2) Sleep apnea: (3) Hypothyroidism: (4) GERD (gastroesophageal reflux disease): (5) Diabetes mellitus, type 2: (6) CVA (cerebral vascular accident): (7) Asthma: (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 Feels her breathing is much better and other than a little wheezing is near normal. She reports "I definitely was not ready yesterday, but I feel so much better today ". She also notes that she could not get above 500 yesterday on the incentive spirometer, is now pulling volumes of at least without Review of Systems Review of Systems: All systems reviewed & are unremarkable except as noted in Subjective Physical Exam Physical Exam: General: A&Ox3. NAD. Cooperative. HEENT: Atraumatic, normocephalic. Pupils equal and reactive to light, EOM intact. Patient continues to have right eye lateral peripheral vision loss at baseline due to a stroke in 1999 Pulm: No wheezing at time of discharge. symmetrical chest rise. No increased work of breathing. No respiratory distress. Cardiac: RRR, soft systolic murmur. Radial pulses intact and symmetrical. Abdominal: Nontender, nondistended, soft. BS present. Extremities: Right upper extremity in postop dressing and sling. Sensation intact in all 5 fingers, but diminished compared to left side. [employer] strength and finger extension is 5/5 bilaterally. Radial pulses intact bilaterally Results & Data Results & Data Vital Signs (Past 12 Hours) Vital Signs Temp Pulse Pulse Pulse Pulse Resp BP 11/25/22 07:50 11/25/22 09:38 74 115/71 11/25/22 07:59 36.6 C 78 18 111/54 L 11/25/22 06:58 72 18 11/25/22 05:10 86 11/25/22 03:01 86 Pulse Ox Pulse Ox Pulse Ox O2 Del Method O2 Del Method O2 Del Method O2 Flow Rate 11/25/22 07:50 Nasal Cannula 2 11/25/22 09:38 94 Nasal Cannula 2 11/25/22 07:59 95 Nasal Cannula 2 11/25/22 06:58 96 Nasal Cannula 2 11/25/22 05:10 92 CPAP 11/25/22 03:01 91 CPAP O2 Flow Rate O2 Flow Rate 11/25/22 07:50 11/25/22 09:38 11/25/22 07:59 11/25/22 06:58 11/25/22 05:10 4 11/25/22 03:01 4 PG Care Time/CCT Total # of Minutes Spent Total Time Spent with Patient: Total time spent is greater than 50% in coordination of care (as documented) at patient's floor/unit and/or counseling patient: Coding Level of Care Code 52737 SUB INP/OBS CARE 2/35MIN Diagnoses Acute respiratory failure with hypoxia J96.01 Sleep apnea G47.30 Hypothyroidism E03.9 GERD (gastroesophageal reflux disease) K21.9 Diabetes mellitus, type 2 E11.9 CVA (cerebral vascular accident) I63.9 Asthma J45.909 Status post reverse total replacement of right shoulder Z96.611 Chronic kidney disease, stage 3 N18.30
--- NOTE | 2022-11-25 12:39 | Pharmacy Report ---
Pharmacy Glycemic Short Note 2 - Date of Service November 25, 2022 - Glycemic Short BSG Results (Last 24 hours): 11/24/22 11/24/22 11/24/22 14:32 17:10 20:20 Glucose 108 H POC Glucose 99 147 H 11/25/22 11/25/22 11/25/22 00:11 04:01 06:17 Glucose 159 H POC Glucose 241 H 201 H 11/25/22 11/25/22 08:10 11:50 Glucose POC Glucose 134 H 111 H OUTPATIENT ANTIDIABETIC REGIMEN: * Metformin 1 gm PO BID * Farxiga 5 mg PO daily * Ozempic 1 mg SC weekly on Wednesdays * HbA1c: 7.2% (10/29/22) ASSESSMENT: 11/25 * Patient's BSGs yesterday were 285-19-87-147 mg/dL. BSGs overnight were 241-201 mg/dL. Patient received 64 units of insulin (25 units of basal and 39 units of bolus). * Patient received Solu-Medrol 60 mg IV around dinnertime. No additional basal insulin was given for steroids due to concern for hypoglycemia. * Fasting today was 134 mg/dL. * Decrease Lantus to 20 units since fasting trending down. NPH 30 units with prednisone 40 mg daily (day 1 of 5). * Tighten Novolog since steroids started. 11/24: * Patient received 104 units of insulin yesterday, 60 units basal + 44 units bolus. BSGs were: [phone] mg/dL. * Fasting BSG this AM was 183 mg/dL, above goal. Will increase basal by ~20% today. * Still seeing some effects of steroid-induced hyperglycemia throughout the night. Likely will wear off in the next 24 hours but will tighten bolus parameters slightly to maintain a BSG < 180 mg/dL to help prevent postoperative infection. * Possible discharge today per ortho. 11/23: * Ms Palma is a 67 y/o F with a PMH of T2DM who presents for R shoulder surgery. * Patient's fasting/preop BSG was 139 mg/dL. Postop BSG was 212 mg/dL. Confirmed with nursing that patient did NOT eat prior to this. * During surgery today, patient received dexamethasone 8 mg PO preop + dexamethasone 4 mg IV intraoperatively. * For steroids, will give NPH 40 units SQ x 1 (0.4 units/kg). Patient's fasting BSG was elevated at 139 mg/dL + patient is on three medications with an HbA1C of 7.2% so will give Lantus 20 units SQ x 1 (0.2 units/kg). * Novolog weight-based stress of 3 for now due to steroids. Overnight checks to ensure 24 hours coverage. PLAN FOR INPATIENT GLYCEMIC CONTROL: * Hold outpatient oral diabetes medications * Basal insulin * Lantus 20 units SC daily * NPH 30 units SQ daily with prednisone 40 mg * Bolus insulin * NovoLog per scale ACHS or Q6hrs while NPO * Goal Range: Low 110 mg/dL - High 140 mg/dL * Correction Factor: 18 mg/dL/unit * Nutritional / Prandial insulin per carb ratio of 1 unit per 5 grams CHO consumed
== END 2022-11-25 16:00 | disposition home health service (06) ==
LOC: ASU 06:56 → 3E 06:56